=== PATIENT | female | born 1990 | race Caucasian/White ===

== ENCOUNTER 2021-02-09 14:19 | Emergency (ER) | payer BC, SELFPAY ==
--- NOTE | 2021-02-09 14:22 | ED.DENTAL ---
HPI - Dental/Oral General Chief complaint: Dental/Oral Stated complaint: Toothache Time Seen by Provider: 02/09/21 14:23 Source: patient and RN notes reviewed History of Present Illness HPI Narrative: Patient is a 30-year-old female who presents the urgent care with complaints of a right upper tooth ache. Patient states that started 4 days ago and she did attempt to call her dentist, at [facility], and they were unable to get her in. Patient denies of any fever, chills, nausea, vomiting. States that she has been using Tylenol and ibuprofen with mild pain relief. No other acute complaints. No acute distress noted. Patient aware of the plan of care. Some parts of this dictation were generated by voice recognition software and may contain typographical and/or grammatical inaccuracies. Related Data Allergies Allergy/AdvReac Type Severity Reaction Status Date / Time No Known Allergies Allergy Verified 02/09/21 14:39 Review of Systems Review of Systems: CONSTITUTIONAL: Denies fever, chills, or sweats. EYES: Denies visual changes, redness, or discharge. ENT: Denies rhinorrhea, congestion, sore throat, or otalgia. Reports of right upper dental pain CARDIOVASCULAR: Denies chest pain, palpitations, or edema. RESPIRATORY: Denies cough or dyspnea. GASTROINTESTINAL: Denies abdominal pain, nausea, vomiting, or diarrhea. GENITOURINARY: Denies dysuria or hematuria. SKIN: Denies rash or itching. MUSCULOSKELETAL: Denies back pain, joint pain, or myalgia. NEUROLOGIC: Denies headache, numbness, or weakness. All other systems reviewed are negative, except as documented in HPI. PMFSH Comments At the time of my signature, I reviewed and agree with the nursing past medical, surgical, social, and family history. There is no relevant family history pertinent to the patient complaint. Exam Narrative: GENERAL: This is a well-nourished, well-developed patient, in no apparent distress. HEAD: normocephalic, atraumatic. EYES: PERRL. Sclera clear/white. Vision is grossly intact. EARS: External ears normal NOSE: External nose normal with no obvious nasal discharge, nares without redness, no rhinorrhea. THROAT: Mucous membranes moist, posterior pharynx clear. DENTAL: Carious lesions noted throughout. Poor dental hygiene. Large carious levels lesion to the right upper second premolar without notable surrounding abscess, erythema or edema NECK: Neck supple CARDIOVASCULAR: Regular rate and rhythm without murmurs, gallops, or rubs. RESPIRATORY: Clear to auscultation. Breath sounds equal bilaterally. No wheezes, rales, or rhonchi. SKIN: warm, intact with no suspicious lesions or rash, good texture and turgor. NEURO: awake, alert, and oriented to person, place and time. There were no obvious focal neurologic abnormalities. EXTREMITIES: No clubbing, cyanosis, or edema. Course Vital Signs Vital signs: Vital Signs Temperature 98.1 F 02/09/21 14:30 Pulse Rate 68 02/09/21 14:30 Respiratory Rate 18 02/09/21 14:30 Blood Pressure 137/86 02/09/21 14:30 Pulse Oximetry 100 02/09/21 14:30 Temperature 98.1 F 02/09/21 14:30 Pulse Rate 68 02/09/21 14:30 Respiratory Rate 18 02/09/21 14:30 Blood Pressure 137/86 02/09/21 14:30 Pulse Oximetry 100 02/09/21 14:30 Reviewed MDM - Dental/Oral MDM Narrative Medical decision making narrative: Explained to the patient that most of her pain is likely due from the root/nerve exposure. Advised her to obtain [id number] filler for dental caries and use the product to fill the hole. Complete the oral antibiotic regimen as prescribed. Be sure to eat and drink with the medication. Continue alternating Tylenol and ibuprofen as needed for pain. Follow-up with your dentist within 2 to 5 days for reevaluation. Differential Diagnosis Differential diagnosis: Likely gingival abscess, dental caries, toothache and dental abscess Critical Care Time Critical Care Time Critical Care Time: No Dis
[2021-02-09 14:30] VITALS: BP 137/86; PULSE 68; RESP 18; TEMP 36.7; O2SAT 100
== END 2021-02-09 14:50 | disposition home or self-care (01) ==
PROVIDERS: Emergency Provider Nurse Practitioner Family; PCP Nurse Practitioner Family
DX: K02.9 Dental caries, unspecified (principal); J45.909 Unspecified asthma, uncomplicated
CPT/HCPCS: 99213; G0463

== ENCOUNTER 2022-06-18 10:04 | Emergency (ER) | payer BC, SELFPAY ==
--- NOTE | ~2022-06-18 | XR_ITS ---
EXAMINATION: XR abdomen/kub 1V DATE: 06/18/2022 10:38 INDICATION: Low abdominal pain. TECHNIQUE: A supine view of the abdomen on 2 radiographs was obtained. COMPARISON: None. FINDINGS: There are no dilated loops of bowel. There is a large volume of stool in the colon. IMPRESSION: 1. Nonobstructive bowel gas pattern. Reviewed, dictated and finalized at location A. L DESIGNER
[2022-06-18 10:12] VITALS: BP 129/77; PULSE 65; RESP 16; TEMP 36.8; O2SAT 100
--- NOTE | 2022-06-18 10:22 | ED.ABDPAIN ---
HPI - Abdominal Pain General Chief Complaint: Urogenital-Female Stated Complaint: abdo pains Time Seen by Provider: 06/18/22 10:22 Source: patient Mode of arrival: ambulatory Limitations: no limitations History of Present Illness HPI narrative: Purvi is a 32-year-old female patient presenting to clinic today with complaints of lower abdominal cramping/sharp pain x1 week. She reports she has a history of constipation as well as urinary tract infections. She denies any urinary symptoms currently. Last bowel movement was 2 days ago. States stool was hard at that time. Last menstrual period was last month. No concern for . Related Data Home Medications Medication Instructions Recorded Confirmed No Home Medications 06/18/22 06/18/22 Allergies Allergy/AdvReac Type Severity Reaction Status Date / Time No Known Allergies Allergy Verified 06/18/22 10:22 Review of Systems Review of Systems: Pertinent positives per HPI. Patient denies any fever, chills, rash, headache, visual changes, dizziness, cough, runny nose, sore throat, shortness of breath, chest pain, palpitations, nausea, vomiting, or diarrhea PMFSH Comments At the time of my signature, I reviewed and agree with the nursing past medical, surgical, social, and family history. There is no relevant family history pertinent to the patient complaint. Exam Narrative: General: Well-developed, well nourished, in no apparent distress. Head: Normocephalic, atraumatic. Cardio: Regular rate and rhythm, s1 and s2 normal, no murmur appreciated. Resp: Clear to auscultation bilaterally, no rhonchi, rales, wheezing or rubs. Abdomen: Soft, pliable, bowel sounds present in all quadrants, tender to palpation over the bilateral lower abdomen left greater than right, no organomegly, no CVAT tenderness. Course Course Emergency Course: Portions of this record may have been created with voice recognition software. Level of Care: Express Care Visit Vital Signs Vital signs: Vital Signs Temperature 36.8 C 06/18/22 10:12 Pulse Rate 65 06/18/22 10:12 Respiratory Rate 16 06/18/22 10:12 Blood Pressure 129/77 06/18/22 10:12 Pulse Oximetry 100 06/18/22 10:12 Oxygen Delivery Room Air 06/18/22 10:12 Temperature 36.8 C 06/18/22 10:12 Pulse Rate 65 06/18/22 10:12 Respiratory Rate 16 06/18/22 10:12 Blood Pressure 129/77 06/18/22 10:12 Pulse Oximetry 100 06/18/22 10:12 Oxygen Delivery Room Air 06/18/22 10:12 Vital signs reviewed MDM - Abdominal Pain MDM Narrative Medical decision making narrative: At the time of visit patient is resting comfortably on exam table. Urinalysis is negative for any sign of infection or blood. Abdominal x-ray was completed and shows a large amount of stool throughout her colon suggestive of constipation. Supportive measures were discussed with the patient she voiced understanding of discharge instructions and agrees to treatment plan Differential Diagnosis Differential diagnosis: Likely abdominal pain, constipation and other (Urinary tract infection, ovarian cyst) Lab Data Labs: Urine Glucose Negative Reference Range: Negative Urine Bilirubin Negative Reference Range: Negative Urine Ketone Negative Reference Range: Negative Urine Specific Bowler 1.020 Reference Range:1.001-1.035 Urine Blood Negative Reference Range: Negative * * Urine pH 8.5 Reference Range: 5.0-9.0 Urine Protein Negative
== END 2022-06-18 11:02 | disposition home or self-care (01) ==
PROVIDERS: Emergency Provider Nurse Practitioner Family; PCP Nurse Practitioner Family
DX: K59.01 Slow transit constipation (principal)
CPT/HCPCS: 74018; 81003; 99213; G0463